=== PATIENT | female | born 1970 | race Two or more races ===

== ENCOUNTER 2021-11-10 09:36 | Outpatient (REF) | payer OTHER, SELFPAY ==
[2021-11-10 12:15] LABS: COVID-19 Test Negative (Negative)
== END 2021-11-10 09:37 | disposition home or self-care (01) ==
LOC: HO.LAB 09:36
PROVIDERS: Visit Provider Internal Medicine
DX: Z20.822 Contact with and (suspected) exposure to COVID-19 (principal)
CPT/HCPCS: 36415; 87635; C9803

== ENCOUNTER 2021-11-11 10:28 | Outpatient (REF) | payer OTHER, SELFPAY ==
[2021-11-11 12:11] LABS: Binax Internal Control QC Valid; Binax Lot number: 1911; Binax Now Covid-19 Ag Negative (Negative)
== END 2021-11-11 10:29 | disposition home or self-care (01) ==
LOC: HO.LAB 10:28
PROVIDERS: Visit Provider Internal Medicine
DX: Z20.822 Contact with and (suspected) exposure to COVID-19 (principal)
CPT/HCPCS: 36415; C9803

== ENCOUNTER 2021-11-15 09:54 | Outpatient (REF) | payer OTHER, SELFPAY ==
[2021-11-15 10:27] LABS: COVID-19 Test Positive (Negative)
[2021-11-15 10:28] LABS: IDNOW Serial# 55D5AD1C
== END 2021-11-15 09:55 | disposition home or self-care (01) ==
LOC: HO.LAB 09:54
PROVIDERS: Visit Provider Internal Medicine
DX: Z20.822 Contact with and (suspected) exposure to COVID-19 (principal)
CPT/HCPCS: 36415; 87635; C9803

== ENCOUNTER 2022-09-09 14:43 | Outpatient (REF) | payer MEDICAID, SELFPAY ==
--- NOTE | ~2022-09-09 | MM_ITS ---
EXAMINATION: MM SCREENING DIGITAL BREAST TOMOSYNTHESIS, BILATERAL CLINICAL INFORMATION: Screening. Asymptomatic. Prior outside mammography from [place] no longer available by patient history. No known family history breast cancer. The lifetime risk of breast cancer based on the Tyrer-Cuzick Model is 8%. COMPARISON: None (current study represents new baseline exam). TECHNIQUE: Digital breast tomosynthesis is performed in both the craniocaudal and mediolateral oblique views along with computer-aided detection (CAD). Synthesized 2D images are generated from the tomosynthesis. FINDINGS: There are scattered areas of fibroglandular density (ACR BI-RADS breast composition Category b). Right CC view has small asymmetric density posterior medial breast extending beyond the [id number] without MLO correlate. This may represent sternalis muscle artifact or inhomogeneous compression. In the absence of prior imaging, patient will be recalled for additional imaging. The remainder of the bilateral breasts show no significant mass or architectural abnormality or abnormal calcifications. The axilla and skin contours are unremarkable. MM/MM tomosynthesis screening BI IMPRESSION: Right: -Small asymmetric density posterior medial breast extending beyond field of view on CC projection, possibly artifact from sternalis muscle or inhomogeneous compression. Left: -No mammographic evidence of malignancy. ASSESSMENT: BI-RADS 0: Incomplete - Need Additional Imaging Evaluation RECOMMENDATION: 1. Additional views of the right breast (right cleavage, ML). 2. Targeted ultrasound if warranted after review of the additional views. 3. Radiology department staff will contact the patient for additional imaging. This patient's information was entered into a reminder system with a target due date for their next mammogram.
== END 2022-09-09 14:44 | disposition home or self-care (01) ==
LOC: HO.MAMMO 14:43
PROVIDERS: PCP Internal Medicine; Visit Provider Internal Medicine
DX: Z12.31 Encounter for screening mammogram for malignant neoplasm of breast (principal)
CPT/HCPCS: 77063; 77067

== ENCOUNTER 2022-09-15 08:16 | Outpatient (REF) | payer MEDICAID, SELFPAY ==
--- NOTE | ~2022-09-15 | MM_ITS ---
EXAMINATION: MM DIAGNOSTIC DIGITAL BREAST TOMOSYNTHESIS, RIGHT US DIAGNOSTIC ULTRASOUND BREAST, RIGHT CLINICAL INFORMATION: Recall from new baseline exam for small asymmetric density posterior medial right breast extending beyond field of view limited to CC projection. TC score 8%. COMPARISON: Mammography: 09/09/2022, new baseline). TECHNIQUE: Digital breast tomosynthesis is performed. 2D images are generated from the tomosynthesis. The following views are obtained: Right cleavage, right ML. Ultrasound right breast is targeted to the medial breast using grayscale imaging and color Doppler without and with harmonics. FINDINGS: There are scattered areas of fibroglandular density (ACR BI-RADS breast composition Category b). The cleavage view shows small fibroglandular density posterior medial breast as noted at recent screening. No architectural abnormality or associated calcification. No MLO or recent MLO correlate. Ultrasound demonstrates no cystic or solid mass or architectural abnormality. Chest wall soft tissues appear normal. Results are discussed with the patient at time of visit, using an manager transfusion. Right asymmetric density shows no three-dimensional mammographic correlate or ultrasound correlate. Management plan is for short interval follow-up right mammography in 6 months. MM/MM tomosynthesis added views R IMPRESSION: -Small probable benign asymmetric density posterior medial breast on recent new baseline. -Unremarkable targeted ultrasound. ASSESSMENT: BI-RADS 3: Probably Benign RECOMMENDATION: Diagnostic right mammography in 6 months. This patient's information was entered into a reminder system with a target due date for their next mammogram.
== END 2022-09-15 08:17 | disposition home or self-care (01) ==
LOC: HO.MAMMO 08:16
PROVIDERS: PCP Internal Medicine; Visit Provider Internal Medicine
DX: R92.2 Inconclusive mammogram (principal)
CPT/HCPCS: 76642; 77061; 77065

== ENCOUNTER 2023-03-24 12:51 | Outpatient (REF) | payer MEDICAID, SELFPAY ==
--- NOTE | ~2023-03-24 | MM_ITS ---
EXAMINATION: MM DIAGNOSTIC DIGITAL BREAST TOMOSYNTHESIS, RIGHT CLINICAL INFORMATION: Short interval six-month follow-up probable benign asymmetric density posterior medial right breast initially noted at new baseline. TC score 8%. COMPARISON: Mammography: 09/15/2022, 09/09/2022 (new baseline, BI-RADS 0), right breast ultrasound 09/15/2022. TECHNIQUE: Digital breast tomosynthesis is performed in both the craniocaudal and mediolateral oblique views along with computer-aided detection (CAD). Synthesized 2D images are generated from the tomosynthesis. FINDINGS: There are scattered areas of fibroglandular density (ACR BI-RADS breast composition Category b). Parenchymal pattern is similar to prior exams. Small asymmetric density posterior medial breast is stable. No developing density or interval architectural abnormality. There are no significant masses, abnormal calcifications, or other abnormalities. The skin contours are smooth. Results are provided to the patient at time of visit by the technologist. MM/MM tomosynthesis diagnostic RT IMPRESSION: -There are no significant changes from prior study. -Asymmetric fibroglandular density posterior medial right breast, stable. ASSESSMENT: BI-RADS 3: Probably Benign RECOMMENDATION: Diagnostic mammography at time of bilateral annual exam, due in 6 months. This patient's information was entered into a reminder system with a target due date for their next mammogram.
== END 2023-03-24 12:52 | disposition home or self-care (01) ==
LOC: HO.MAMMO 12:51
PROVIDERS: PCP Internal Medicine; Visit Provider Internal Medicine
DX: N64.89 Other specified disorders of breast (principal)
CPT/HCPCS: 77061; 77065

== ENCOUNTER 2023-09-27 11:35 | Outpatient (REF) | payer MEDICAID, SELFPAY ==
[2023-09-27 13:23] LABS: MANUAL DIFF FLAG NO
[2023-09-27 13:34] LABS: Basophils Absolute Auto 0.1 X10*3/uL (0.0-0.2); Basophils Percent Auto 0.8 % (0-2); Eosinophils Absolute Auto 0.3 X10*3/uL (0.0-0.4); Eosinophils Percent Auto 4.2 % (0-4); Hematocrit 44.7 % (37.0-47.0); Hemoglobin 14.4 g/dl (12.0-16.0); Imm Gran Abs Auto 0.03 X10*3/uL (0.00-0.03); Imm Gran Pct Auto 0.5 % (0.0-0.4); Lymphocytes Absolute Auto 2.5 X10*3/uL (1.2-4.9); Lymphocytes Percent Auto 42.3 % (20-40); Mean Corpuscular HGB Conc 32.2 g/dl (31.0-35.0); Mean Corpuscular Hemoglobin 29.3 pg (27.0-33.0); Mean Platelet Volume 10.9 fL (9.4-12.3); Monocytes Absolute Auto 0.5 X10*3/uL (0.1-1.2); Monocytes Percent Auto 7.8 % (2-11); Neutrophils Absolute Auto 2.7 x10*3/uL (2.0-8.3); Neutrophils Percent Auto 44.4 % (45-73); Platelet Count 232 X10*3/uL (160-400); Red Blood Count 4.91 X10*6/uL (4.20-5.50); Red Cell Distribution Width 12.6 % (11.0-16.0)
[2023-09-27 13:52] LABS: Alanine Aminotransferase 28 U/L (0-31); Albumin Level 4.4 g/dL (3.5-5.0); Alkaline Phosphatase 63 U/L (39-117); Anion Gap 11 (12-20); Aspartate Amino Transferase 25 U/L (5-31); Bilirubin Direct 0.2 mg/dL (0.0-0.5); Bilirubin Total 0.5 mg/dL (0.0-1.0); Blood Urea Nitrogen 15 mg/dL (9-16); Calcium 9.9 mg/dL (8.4-10.2); Carbon Dioxide 33 mmol/L (22-29); Chloride 105 mmol/L (96-108); Cholesterol 190 mg/dL (<200); Estimated Glomerular Filt Rate > 60; Glucose Random 107 mg/dL (60-115); HDL Cholesterol 43 mg/dL (>40); LDL Cholesterol Calculated 128 mg/dL (<100); Potassium 3.6 mmol/L (3.3-5.1); Sodium 145 mmol/L (135-145); Total Protein 7.3 g/dL (6.5-8.0); Triglycerides 98 mg/dL (<150)
[2023-09-27 14:27] LABS: Estimated Average Glucose 105 mg/dL; Hemoglobin A1c % 5.3 % (<6.0)
[2023-09-28 08:46] LABS: HIV AB/AG Nonreactive (Nonreactive); HIV Num 1 0.04 S/CO (0.00-0.99); ~HepC Num1 0.07 S/CO (0.00-0.79); ~Hepatitis C Antibody Nonreactive (Nonreactive)
== END 2023-09-27 11:36 | disposition home or self-care (01) ==
LOC: HO.HHCL 11:35
PROVIDERS: Visit Provider Internal Medicine
DX: Z00.00 Encounter for general adult medical examination without abnormal findings (principal)
CPT/HCPCS: 36415; 80048; 80061; 80076; 83036; 84443; 85025; 86803; 87389

== ENCOUNTER 2023-12-07 13:37 | Outpatient (REF) | payer MEDICAID, SELFPAY ==
[2023-12-09 23:28] LABS: TS Negative Control Passed; TS Panel A 0; TS Panel B 0; TS Positive Control Passed; TSpotTB Negative (Negative)
== END 2023-12-07 13:38 | disposition home or self-care (01) ==
LOC: HO.HHCL 13:37
PROVIDERS: Visit Provider Internal Medicine
DX: Z11.1 Encounter for screening for respiratory tuberculosis (principal)
CPT/HCPCS: 36415; 86481

== ENCOUNTER → 2024-03-26 15:00 | Outpatient (BNV) | payer MEDICAID, SELFPAY | PROVIDERS: PCP Internal Medicine; Visit Provider Radiology Diagnostic Radiology | DX: Z12.31 Encounter for screening mammogram for malignant neoplasm of breast (principal) | CPT/HCPCS: 77063; 77067 ==

== ENCOUNTER 2024-03-26 15:10 | Outpatient (REF) | payer MEDICAID, SELFPAY ==
--- NOTE | ~2024-03-26 | MM_ITS ---
EXAMINATION: MM DIAGNOSTIC DIGITAL BREAST TOMOSYNTHESIS, BILATERAL CLINICAL INFORMATION: 03/24/2023 exam recommended 6 month follow-up for far posterior medial right breast asymmetric density, seen on the posterior CC view only. No associated finding on right breast ultrasound 09/15/2022. The patient did return today for yearly, but not for the 6 month follow-up. The current exam is diagnostic right, left screening exam. COMPARISON: Mammography: 03/24/2023, 09/15/2022, 09/09/2022 (new baseline, BI-RADS 0), right breast ultrasound 09/15/2022. TECHNIQUE: Digital breast tomosynthesis is performed in both the craniocaudal and mediolateral oblique views along with computer-aided detection (CAD). Synthesized 2D images are generated from the tomosynthesis. In addition, full-field 3-D right mediolateral view was obtained, as well as a second full-field 3-D right CC view exaggerated medially. FINDINGS: There are scattered areas of fibroglandular density (ACR BI-RADS breast composition Category b). There are no suspicious masses, suspicious grouped calcifications, or areas of architectural distortion in either breast. The small 1 view asymmetry in the far medial posterior right breast is present, and smaller when compared with numerous prior exams dating back to 2021. This is benign. The parenchymal pattern is otherwise stable from prior exams. No skin or axillary abnormality is evident. MM/MM tomosynthesis diagnostic BI IMPRESSION: There are no findings suspicious for malignancy in either breast. Recommend the patient return to routine annual screening. ASSESSMENT: BI-RADS BI-RADS 2 - Benign Findings RECOMMENDATION: 1 year F/U Results were provided to the patient at time of visit by the technologist. This patient's information was entered into a reminder system with a target due date for their next mammogram.
== END 2024-03-26 15:11 | disposition home or self-care (01) ==
LOC: HO.MAMMO 15:10
PROVIDERS: PCP Internal Medicine; Visit Provider Internal Medicine
DX: R92.2 Inconclusive mammogram (principal)
CPT/HCPCS: 77062; 77066

== ENCOUNTER 2025-05-19 12:41 | Outpatient (REF) | payer OTHER, SELFPAY ==
--- OUTSIDE RECORDS SUMMARY | 2025-05-19 13:14 | XMS_ITS | Clinical Summary ---
Author Organization [employer] Address [address] [place] [address] Care Team Providers Care Record Maker Name Role Phone Jenn Booker MD Primary Care Provide r Allergies No known active allergies Medications Blood Pressure Monitor kitIndications:Pr imary hypertension Use as directed 3x/week 1 kit 3 Active hydroCHLOROthiazi de (HYDRODiuril) 25 MG tabletIndications :Primary hypertension Take 1 tablet (25 mg) by mouth in the morning. 90 tablet 3 4 Active amLODIPine (Norvasc) 5 MG tabletIndications :Primary hypertension Take 1 tablet (5 mg) by mouth in the morning. 30 tablet 11 4 Active butalbital-acetam inophen-caffeine 50-325-40 MG tabletIndications :Migraine without aura and without status migrainosus, not intractable TAKE 1 TABLET BY MOUTH EVERY 4 HOURS NEEDED FOR HEADACHE 9 tablet 2 4 Active fluticasone (Flonase) 50 MCG/ACT nasal sprayIndications: Chronic pansinusitis INSTILL 1 SPRAY IN EACH NOSTRIL ONCE DAILY IN THE MORNING 48 g 4 Active loratadine (Claritin) 10 MG tabletIndications :Seasonal allergies TAKE 1 TABLET BY MOUTH EVERY MORNING 90 tablet 4 Active clotrimazole-beta methasone (Lotrisone) cream APPLY TOPICALLY TO THE AFFECTED AREA(S) TWICE DAILY DIRECTED 45 g 1 4 Active Active Problems Problem Noted Date Diagnosed Date Tuberculosis screening 12/07/2023 Colon cancer screening 12/07/2023 Migraine headache without aura 09/13/2023 Assessment & Plan (12/07/2023 1:39 PM EST): C/w current interventions Assessment & Plan (09/13/2023 11:44 AM EDT): I advise to avoid migraine triggers like red wine, chocolate, cheese, strong perfumes Chronic pansinusitis 09/13/2023 Encounter for preventive care 09/13/2023 Assessment & Plan (09/13/2023 11:44 AM EDT): See HPI Seasonal allergies 09/13/2023 Class 2 severe obesity due t o excess calories with serious comorbidity in adult 09/13/2023 Assessment & Plan (09/13/2023 11:43 AM EDT): Today extensive discussion was done about life style modifications I advise healthy diet (low calorie) and cardiovascular exercise Primary hypertension 09/13/2023 Assessment & Plan (12/07/2023 1:38 PM EST): Maintenance: BMP: up to date Lipid Panel: Up to date ASCVD Risk: 3.5% low risk -Im suspecting patient has white coat syndrome, blood pressure was good before coming to appointment I advise: - Aerobic exercise to reduce BP. Initial goal of 30 min walk 3-5x/week. Increase as tolerated. - low-sodium diet (goal: <2g/day) and heart healthy diet such as DASH to reduce BP and prevent ASCVD. - Home BP monitoring 1-2 x day with goal of <140/90. - Seek immediate medical attention for chest pain, palpitations, SOB, syncope, or sudden changes in mental status. - Do not change or discontinue current prescriptions without first consulting health care provider Assessment & Plan (09/13/2023 11:36 AM EDT): Maintenance: BMP: ordered Lipid Panel: ordered ASCVD Risk: Calculate pending updated labs -I will start today hydrochlorothiazide 12.5mg RTC 2 weeks with nurse for BP check if not at goal plan is to increase the dose - Aerobic exercise to reduce BP. Initial goal of 30 min walk 3-5x/week. Increase as tolerated. - low-sodium diet (goal: <2g/day) and heart healthy diet such as DASH to reduce BP and prevent ASCVD. - Home BP monitoring 1-2 x day with goal of <140/90. - Seek immediate medical attention for chest pain, palpitations, SOB, syncope, or sudden changes in mental status. - Do not change or discontinue current prescriptions without first consulting health care provider Vitamin D deficiency 08/15/2023 Immunizations Immunization Administration Dates Next Due IPV 06/26/1986,06/29/1984,05/28/1984 Influenza Injectable Quadriv alant Preservative Free IIV4 MDCK 09/06/2022 Influenza injectable quadriv alent preservative free 09/13/2023 MMR 05/28/1984 TD (adult), 2 Lf tetanus tox oid, preservative free, adsorbed 06/26/1986,06/29/1984,05/28/1984 Tdap 09/06/2022 Zoster, Recombinant 09/06/2022,07/06/2022 Social History Tobacco Use Types Packs/Day Years Used Date Smoking Tobacco: Some Days Cigarettes Depression Answer Date Recorded Patient Health Questionnaire-9 Score 0 09/13/2023 Patient Health Questionnaire-9 Score 0 09/13/2023 Last PHQ-9: Questionnaire Data Not on file 1 11/13/2022 Housing Stability Answer Date Recorded What is your housing situation today? I have zachsabrina norris 09/05/[address] you li ve. Do you have problems with any of the following? None of the above 09/05/2023 Food Insecurity Answer Date Recorded Within the past 12 months, y ou worried that your food would run out before you got money to buy more: Never True 09/05/2023 Within the past 12 months,th e food you bought just didn't last and you didn't have enough money to get more: Never True Transportation Answer Date Recorded In the past 12 months, has l ack of transportation kept you from medical appts, meetings, work or from getting things needed for daily living? No 09/05/2023 Utilities Answer Date Recorded In the past 12 months, has t he electric, gas, oil or water company threatened to shut off services in your home? No 09/05/2023 Depression Answer Date Recorded Patient Health Questionnaire-2 Score 0 09/13/2023 Comments Unknown Sex and Gender Information Value Date Recorded Sex Assigned at Female 09/12/2022 10:40 AM EDT Legal Sex Female 10:40 AM EDT Gender Identity Female 09/12/2022 10:40 AM EDT Sexual Orientation Straight 09/12/2022 10 :40 AM EDT Last Filed Vital Signs Vital Sign Reading Time Taken Comments Blood Pressure 158/95 12/07/2023 1:12 PM EST Pulse 70 12/07/2023 1:12 PM EST Temperature 36.6 C (97.8 F) 12/07/2023 1:12 PM EST Respiratory Rate 14 12/07/2023 1:12 PM EST Oxygen Saturation 99% 12/07/2023 1:12 PM EST Inhaled Oxygen Concentration - - Weight 95.7 kg (211 lb) 12/07/2023 1:12 PM EST Height 157.5 cm (5' 2 ) 12/07/2023 1:12 PM EST Body Mass Index 38.59 12/07/2023 1:12 PM EST Plan of Treatment Health Maintenance Due Date Last Done Comments CT Colonography 1972 Colonoscopy 1972 Colorectal Cancer Screening 1972 FIT DNA/Cologuard 1972 FIT 1972 FOBT 1972 Sigmoidoscopy 1972 Disability Screening 1972 Alcohol/Substance Use Screening 1984 Hepatitis B Vaccines (1 of 3 - 19+ 3-dose series) 1991 Pneumococcal Vaccine: 50+ Years (1 of 2 - PCV) 1991 Pap Smear 1993 Cervical Cancer Screening 2002 HPV/Cotest 2002 COVID-19 Vaccine ( season) 2024 SDOH Screening 09/05/2024 09/05/2023 Depression Screening 09/13/2024 09/13/2023, 09/13/20 23 Tobacco Screening 09/13/2024 09/13/2023 Mammogram 03/26/2025 03/26/2024, 03/13, 03/24/2023, Additional history exists Influenza Vaccine (#1) 2025 09/13/2023, 2021 Lipid Panel 09/27/2028 09/27/2023, 07/06/2022 DTaP/Tdap/Td Vaccines (5 - Td or Tdap) 09/06/2032 09/06/2022, 06/26/1986, 06/29/1984, Additional history exists RSV Patients and Patients Aged 60 years or older (1 - 1-dose 75+ series) 2047 IPV Vaccines Completed 06/26/1986, 06/13, 05/28/1984 Zoster Vaccines Completed 09/06/2022, 07/06/2022 HIV Screening Completed 09/27/2023, 07/06/2022 Hepatitis C Screening Completed 09/27/2023, 022 HIB Vaccines Aged Out No longer eligi ble based on patient's age to complete this topic HPV Vaccines Aged Out No longer eligi ble based on patient's age to complete this topic Hepatitis A Vaccines Aged Out No long er eligible based on patient's age to complete this topic Meningococcal B Vaccine Aged Out No l onger eligible based on patient's age to complete this topic Meningococcal Vaccine Aged Out No alysa jamie eligible based on patient's age to complete this topic RSV under 20 months Aged Out No longe r eligible based on patient's age to complete this topic Rotavirus Vaccines Aged Out No longer eligible based on patient's age to complete this topic Procedures Procedure Name Priority Date/Time Associated Diagnosis Comments BI MAMMOGRAM DIAGNOSTIC TOMOSYNTHESIS BILATERAL Routine 03/26/2024 3:35 PM EDT HEPATITIS C AB W/REFL TO HCV RNA, QN, PCR Routine 09/27/2023 11:40 AM EST Encounter for preventive care HIV 1/2 ANTIGEN/ANTIBODY, FOURTH GENERATION W/RFL Routine 09/27/2023 11:40 AM EST Encounter for preventive care LIPID PANEL, STANDARD Routine 09/27/2023 11:40 AM EST Encounter for preventive care from Last 3 Months or Most Recently Relevant to Health Maintenance Results * BI Mammogram Diagnostic Tomosynthesis Bilateral (03/26/2024 3:35 PM EDT) Anatomical Region Laterality Modality Breast Bilateral Mammography 03/26/2024 3:35 PM EDT Narrative 03/26/2024 4:08 PM EDT [facility] [address] [place] [address] Mammography Report Signed Patient: Lupe Kamara MR#: [id number] : 1970 Acct:[id number] Age/Sex: 54 / F ADM Date: 03/26/24 Loc: HO.MAMMO Attending Dr: Jenn Ewing MD Ordering Physician: Jenn Booker MD Results: 2Benign Findings Date of Service: 03/26/24 Follow Up: 1 Year From Orig ina Mammogram Procedure(s): MM tomosynthesis diagnostic BI Accession Number(s): [id number] cc: Jenn Booker MD EXAMINATION: MM DIAGNOSTIC DIGITAL BREAST TOMOSYNTHESIS, BILATERAL CLINICAL INFORMATION: 03/24/2023 exam recommended 6 month follow-up for far posterior medial right breast asymmetric density, seen on the posterior CC view only. No associated finding on right breast ultrasound 09/15/2022. The patient did return today for yearly, but not for the 6 month follow-up. The current exam is diagnostic right, left screening exam. COMPARISON: Mammography: 03/24/2023, 09/15/2022, 09/09/2022 (new baseline, BI-RADS 0), right breast ultrasound 09/15/2022. TECHNIQUE: Digital breast tomosynthesis is performed in both the craniocaudal and mediolateral oblique views along with computer-aided detection (CAD). Synthesized 2D images are generated from the tomosynthesis. In addition, full-field 3-D right mediolateral view was obtained, as well as a second full-field 3-D right CC view exaggerated medially. FINDINGS: There are scattered areas of fibroglandular density (ACR BI-RADS breast composition Category b). There are no suspicious masses, suspicious grouped calcifications, or areas of architectural distortion in either breast. The small 1 view asymmetry in the far medial posterior right breast is present, and smaller when compared with numerous prior exams dating back to 2021. This is benign. The parenchymal pattern is otherwise stable from prior exams. No skin or axillary abnormality is evident. MM/MM tomosynthesis diagnostic BI IMPRESSION: There are no findings suspicious for malignancy in either breast. Recommend the patient return to routine annual screening. ASSESSMENT: BI-RADS BI-RADS 2 - Benign Findings RECOMMENDATION: 1 year F/U Results were provided to the patient at time of visit by the technologist. This patient's information was entered into a reminder system with a target due date for their next mammogram. Dictated By: Guanako Cordoba MD Signed By: <Electronically signed by Guanako Cordoba MD in OV> 03/26/24 1604 DD/ 1535 TD/TT: Corner Former: Procedure Note Donotuseinterpreter, Image - 03/26/2024 [facility] [address] [place] [address] Mammography Report Signed Patient: Lupe Kamara BMR#: [id number] : 1970Acct:[id number] Age/Sex: 54 / FADM Date: 03/26/24 Loc: HO.MAMMO Attending Dr: Jenn Ewing MD Ordering Physician: Jenn Booker MDResults: 2Benign Findings Date of Service: 03/26/24Follow Up: 1 Year From [facility] Mammogram Procedure(s): MM tomosynthesis diagnostic BI Accession Number(s): [id number] cc: Jenn Booker MD EXAMINATION: MM DIAGNOSTIC DIGITAL BREAST TOMOSYNTHESIS, BILATERAL CLINICAL INFORMATION: 03/24/2023 exam recommended 6 month follow-up for far posterior medial right breast asymmetric density, seen on the posterior CC view only. No associated finding on right breast ultrasound 09/15/2022. The patient did return today for yearly, but not for the 6 month follow-up. The current exam is diagnostic right, left screening exam. COMPARISON: Mammography: 03/24/2023, 09/15/2022, 09/09/2022 (new baseline, BI-RADS 0), right breast ultrasound 09/15/2022. TECHNIQUE: Digital breast tomosynthesis is performed in both the craniocaudal and mediolateral oblique views along with computer-aided detection (CAD). Synthesized 2D images are generated from the tomosynthesis. In addition, full-field 3-D right mediolateral view was obtained, as well as a second full-field 3-D right CC view exaggerated medially. FINDINGS: There are scattered areas of fibroglandular density (ACR BI-RADS breast composition Category b). There are no suspicious masses, suspicious grouped calcifications, or areas of architectural distortion in either breast. The small 1 view asymmetry in the far medial posterior right breast is present, and smaller when compared with numerous prior exams dating back to 2021. This is benign. The parenchymal pattern is otherwise stable from prior exams. No skin or axillary abnormality is evident. MM/MM tomosynthesis diagnostic BI IMPRESSION: There are no findings suspicious for malignancy in either breast. Recommend the patient return to routine annual screening. ASSESSMENT: BI-RADS BI-RADS 2 - Benign Findings RECOMMENDATION: 1 year F/U Results were provided to the patient at time of visit by the technologist. This patient's information was entered into a reminder system with a target due date for their next mammogram. Dictated By: Guanako Cordoba MD Signed By: <Electronically signed by Guanako Cordoba MD in OV> 03/26/24 1604 DD/ 1535 TD/TT: Corner Former: us Jenn Ewing MD IMG BI PROCEDURES Fin al Result * Hepatitis C Antibody with Reflex to HCV, RNA, Quantitative, Real-Time PCR (09/27/2023 11:40 AM EST) Hepatitis C Antibody Nonreactive Nonreactive [facility] Comment:Antibodies to HCV no t detected; does not exclude early acuteHCV infection. Blood Venous blood specimen / Unknown 09/27/2023 11:40 AM EST 09/27/2023 1:18 PM EST Jenn Ewing MD LAB BLOOD ORDERABLES Final Result [facility] [address] [place] [address] [phone] * HIV-1/2 Antigen and Antibodies, Fourth Generation, with Reflexes (09/27/2023 11:40 AM EST) HIV AB/AG Nonreactive Nonreactive [facility] Comment:HIV-1 p24 Ag and/or HIV-1/HIV-2 Ab not detected.A test result that is nonreactive does not exclude thepossibility of exposure to or infection with HIV-1 and/orHIV-2. Nonreactive results in this assay for individualswith prior exposure to HIV-1 and/or HIV-2 may be due toantigen and antibody levels that are below the limit ofdetection of this assay.The [place] HIV Ag/Ab Combo assay result andsupplemental assay results should be interpreted inconjunction with the patient's clinical presentation,history and other laboratory results. If the results areinconsistent with clinical evidence, additional testing issuggested to confirm the result. Blood Venous blood specimen / Unknown 09/27/2023 11:40 AM EST 09/27/2023 1:18 PM EST us Jenn Ewing MD LAB BLOOD ORDERABLES Final Result [facility] [address] [place] [phone] * (ABNORMAL) Lipid Panel, Standard (09/27/2023 11:40 AM EST) Triglycerides 98 <150 mg/dL [facility] Comment:Desirable Triglyceri de: less than 150 mg/dLBorderline High Triglyceride 150-199 mg/dLHigh Triglyceride: 200-499 mg/dLVery High Triglyceride: greater than or equal to 5OO mg/dL Cholesterol 190 <200 mg/dL [facility] Comment:Desirable Cholestero l: less than 200 mg/dLBorderline High Cholesterol: 200-239 mg/dLHigh Cholesterol: greater than 239 mg/dL LDL Cholesterol Calculated 128(H) <100 mg/dL [facility] Comment:Desirable LDL: less than 100 mg/dLNear Optimal/Above Optimal LDL: 110- 129 mg/dLBorderline High LDL: 130-159 mg/dLHigh LDL: 160-189 mg/dLVery High LDL: greater than or equal to 190 mg/dL HDL Cholesterol 43 >40 mg/dL [facility] Comment:Desirable HDL: great er than 40 mg/dL Note: This HDL assay may give artificially low results in patients with liver disease. Blood Venous blood specimen / Unknown 09/27/2023 11:40 AM EST 09/27/2023 1:18 PM EST us Jenn Ewing MD LAB BLOOD ORDERABLES Final Result Performing Organization Address City/State/[facility] Co de Phone Number [facility] [address] [place] [phone] from Last 3 Months or Most Recently Relevant to Health Maintenance Insurance [facility] C3 Care Teams Record Maker Relationship Specialty Start Date End Date Jenn Booker MD [address] [place] [address] PCP - General Family Medicine 07/06/22
== END 2025-05-19 12:42 | disposition home or self-care (01) ==
LOC: HO.MAMMO 12:41
PROVIDERS: PCP Internal Medicine; Visit Provider Internal Medicine
DX: Z12.31 Encounter for screening mammogram for malignant neoplasm of breast (principal)
CPT/HCPCS: 77063; 77067

== ENCOUNTER → 2025-05-19 13:00 | Outpatient (BNV) | payer OTHER, SELFPAY | PROVIDERS: PCP Internal Medicine; Visit Provider Internal Medicine | DX: Z12.31 Encounter for screening mammogram for malignant neoplasm of breast (principal) | CPT/HCPCS: 77063; 77067 ==

== ENCOUNTER 2025-07-07 14:17 | Outpatient (REF) | payer OTHER, SELFPAY ==
--- NOTE | ~2025-07-07 | US_ITS ---
EXAMINATIONS: 1. MM DIAGNOSTIC DIGITAL BREAST TOMOSYNTHESIS, RIGHT 2. Targeted ultrasound of the right breast CLINICAL INFORMATION: Callback from screening for right breast focal asymmetry in the upper outer quadrant at middle depth. COMPARISON: Comparison made to multiple prior, most recent May 19, 2025, and most remote September 09, 2022. TECHNIQUE: Digital breast tomosynthesis is performed in full-field ML 90 degrees along with computer-aided detection (CAD). Synthesized 2D images are generated from the tomosynthesis. Spot compression tomosynthesis images were also obtained. FINDINGS: BREAST COMPOSITION: There are scattered areas of fibroglandular density (ACR BI-RADS breast composition Category b). RIGHT BREAST: Previously suggested focal asymmetry almost completely effaces with spot compression. Local parenchyma on today's images is similar to multiple prior studies as far back as 2021. Targeted ultrasound of the right breast was performed at the location of the mammographic finding. The survey throughout the upper outer quadrant did not reveal suspicious sonographic findings. US/US breast RT limited mamm only IMPRESSION: RIGHT BREAST: Negative, no evidence of malignancy. Normal interval follow-up is recommended in 12 months. ASSESSMENT: BI-RADS 1 - Negative RECOMMENDATION: 1 year F/U Results were provided to the patient at time of visit by the technologist. This patient's information was entered into a reminder system with a target due date for their next mammogram. Electronically signed by: Marilyn Hugo MD 07/07/2025 03:17 PM EDT Workstation: [id number]
--- OUTSIDE RECORDS SUMMARY | 2025-07-07 15:49 | XMS_ITS | Encounter Summary ---
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 Role Phone Jenn Booker MD Primary Care Provide r Encounter Details Date Type Department Care Team ([facility] st Contact Info) Description 07/07/2025 Orders Only [facility] MEDICINE [address] [place], [place] [phone] Jenn Booker MD [address] [place], [place] [phone] Social History Tobacco Use Types Packs/Day Years Used Date Smoking Tobacco: Some Days Cigarettes Depression Answer Date Recorded Patient Health Questionnaire-9 Score 0 09/13/2023 Patient Health Questionnaire-9 Score 0 09/13/2023 Last PHQ-9: Questionnaire Data Not on file 1 11/13/2022 Housing Stability Answer Date Recorded What is your housing situation today? I have zach norris 09/05/[address] you [...] Orientation Straight 09/12/2022 10 :40 AM EDT documented as of this encounter Plan of Treatment Upcoming Encounters Date Type Department Care Team (Late st Contact Info) Description 08/08/2025 3:15 PM EDT Office Visit [facility] MEDICINE [address] [place] [phone] Jenn Booker MD [address] [place] [address] documented as of this encounter Procedures Procedure Name Priority Date/Time Associated Diagnosis Comments BI MAMMOGRAM DIAGNOSTIC TOMOSYNTHESIS ADDED VIEW RIGHT Routine 07/07/2025 2:30 PM EDT documented in this encounter Results * BI Mammogram Diagnostic Tomosynthesis added right (07/07/2025 2:30 PM EDT) Anatomical Region Laterality Modality Breast Left Mammography 07/07/2025 2:30 PM EDT Narrative 07/07/2025 3:21 PM EDT [facility]'s [address] [place] [address] Mammography Report Signed Patient: Lupe Kamara MR#: [id number] : 1970 Acct:[id number] Age/Sex: 55 / F ADM Date: 07/07/25 Loc: DORCAS Attending Dr: Jenn Ewing MD Ordering Physician: Jenn Booker MD Results: 1Negative Date of Service: 07/07/25 Follow Up: 1 Year From Orig inal Mammogram Procedure(s): MM tomosynthesis added views R Accession Number(s): [id number] cc: Jenn Booker MD EXAMINATIONS: 1. MM DIAGNOSTIC DIGITAL BREAST TOMOSYNTHESIS, RIGHT 2. Targeted ultrasound of the right breast CLINICAL INFORMATION: Callback from screening for right breast focal asymmetry in the upper outer quadrant at middle depth. COMPARISON: Comparison made to multiple prior, most recent May 19, 2025, and most remote September 09, 2022. TECHNIQUE: Digital breast tomosynthesis is performed in full-field ML 90 degrees along with computer-aided detection (CAD). Synthesized 2D images are generated from the tomosynthesis. Spot compression tomosynthesis images were also obtained. FINDINGS: BREAST COMPOSITION: There are scattered areas of fibroglandular density (ACR BI-RADS breast composition Category b). RIGHT BREAST: Previously suggested focal asymmetry almost completely effaces with spot compression. Local parenchyma on today's images is similar to multiple prior studies as far back as 2021. Targeted ultrasound of the right breast was performed at the location of the mammographic finding. The survey throughout the upper outer quadrant did not reveal suspicious sonographic findings. MM/MM tomosynthesis added views R IMPRESSION: RIGHT BREAST: Negative, no evidence of malignancy. Normal interval follow-up is recommended in 12 months. ASSESSMENT: BI-RADS 1 - Negative RECOMMENDATION: 1 year F/U Results were provided to the patient at time of visit by the technologist. This patient's information was entered into a reminder system with a target due date for their next mammogram. Electronically signed by: Marilyn Hugo MD 07/07/2025 03:17 PM EDT Dictated By: Marilyn Hugo MD Signed By: <Electronically signed by Marilyn Hugo MD in OV> 07/07/25 1517 DD/ 1430 TD/TT: 07/07/25 1447 Film Or Videotape Editor: Procedure Note Donotuseinterpreter, Image - 07/07/20[facility] [address] [place] [address] Mammography Report Signed Patient: Lupe Kamara BMR#: [id number] : 1970Acct:[id number] Age/Sex: 55 / FADM Date: 07/07/25 Loc: HO.MAMMO Attending Dr: Jenn Ewing MD Ordering Physician: Jenn Booker MDResults: 1Negative Date of Service: 07/07/25Follow Up: 1 Year From Orig inal Mammogram Procedure(s): MM tomosynthesis added views R Accession Number(s): [id number] cc: Jenn Booker MD EXAMINATIONS: 1. MM DIAGNOSTIC DIGITAL BREAST TOMOSYNTHESIS, RIGHT 2. Targeted ultrasound of the right breast CLINICAL INFORMATION: Callback from screening for right breast focal asymmetry in the upper outer quadrant at middle depth. COMPARISON: Comparison made to multiple prior, most recent May 19, 2025, and most remote September 09, 2022. TECHNIQUE: Digital breast tomosynthesis is performed in full-field ML 90 degrees along with computer-aided detection (CAD). Synthesized 2D images are generated from the tomosynthesis. Spot compression tomosynthesis images were also obtained. FINDINGS: BREAST COMPOSITION: There are scattered areas of fibroglandular density (ACR BI-RADS breast composition Category b). RIGHT BREAST: Previously suggested focal asymmetry almost completely effaces with spot compression. Local parenchyma on today's images is similar to multiple prior studies as far back as 2021. Targeted ultrasound of the right breast was performed at the location of the mammographic finding. The survey throughout the upper outer quadrant did not reveal suspicious sonographic findings. MM/MM tomosynthesis added views R IMPRESSION: RIGHT BREAST: Negative, no evidence of malignancy. Normal interval follow-up is recommended in 12 months. ASSESSMENT: BI-RADS 1 - Negative RECOMMENDATION: 1 year F/U Results were provided to the patient at time of visit by the technologist. This patient's information was entered into a reminder system with a target due date for their next mammogram. Electronically signed by: Marilyn Hugo MD 07/07/2025 03:17 PM EDT Dictated By: Marilyn Hugo MD Signed By: <Electronically signed by Marilyn Hugo MD in OV> 07/07/25 1517 DD/ 1430 TD/TT: 07/07/25 1447 Film Or Videotape Editor: Jenn Ewing MD IMG BI PROCEDURES Fin al Result documented in this encounter Visit Diagnoses Not on filedocumented in this encounter Additional Health Concerns Assessment Noted Time PHQ-9 Depression Total Score: 0 09/13/20 23 10:56 AM EDT documented as of this encounter Care Teams Raw Finish Mill Operator Relationship Specialty Start Date End Date Jenn Booker MD [address] [place] [phone] PCP - General Family Medicine 07/06/22 documented as of this encounter
--- OUTSIDE RECORDS SUMMARY | 2025-07-07 15:49 | XMS_ITS | Clinical Summary ---
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 Name Role Phone Jenn Booker MD Primary [...] health care provider Vitamin D deficiency 08/15/2023 Encounters Date Type Department Care Team Description 07/07/2025 Orders Only [facility] MEDICINE [address] [place] [phone] Jenn Booker MD 05/19/2025 Orders Only [facility] MEDICINE [address] [place] [address] Jenn Booker MD from Last 3 Months Immunizations Immunization Administration Dates Next Due IPV [...] 12/07/2023 1:12 PM EST Plan of Treatment Upcoming Encounters Date Type Department Care Team (Late st Contact Info) Description 08/08/2025 3:15 PM EDT Office Visit [facility] MEDICINE [address] [place] [address] Jenn Booker MD [address] [place] [address] Health Maintenance Due Date Last Done Comments [...] Cancer Screening 2002 HPV/Cotest 2002 COVID-19 Vaccine (1 - season) 2024 SDOH Screening 09/05/2024 09/05/2023 Depression Screening 09/13/2024 09/13/2023, 09/13/20 23 Tobacco Screening 09/13/2024 09/13/2023 Influenza Vaccine (#1) 2025 09/13/2023, 2021 Mammogram 05/19/2026 05/19/2025, 03/13, 03/24/2023, Additional history exists Lipid Panel 09/27/2028 09/27/2023, 07/06/2022 DTaP/Tdap/Td Vaccines [...] VIEW RIGHT Routine 07/07/2025 2:30 PM EDT BI MAMMOGRAM SCREENING TOMOSYNTHESIS BILATERAL Routine 05/19/2025 12:45 PM EDT HEPATITIS C AB W/REFL TO [...] Maintenance Results * BI Mammogram Diagnostic Tomosynthesis added right (07/07/2025 2:30 PM EDT) Anatomical Region Laterality Modality Breast Left Mammography 07/07/2025 2:30 PM EDT Narrative 07/07/2025 3:21 PM EDT [facility] [address] [place] [address] Mammography Report Signed Patient: Lupe Kamara MR#: [id number] : 1970 Acct:[id number] Age/Sex: 55 / F ADM Date: 07/07/25 Loc: DORCAS Attending Dr: Jenn Ewing MD Ordering Physician: Jenn Booker MD Results: 1Negative Date of Service: 07/07/25 Follow Up: 1 Year From Orig inal Mammogram Procedure(s): MM tomosynthesis added views R Accession Number(s): [id number] cc: Jenn Booker MD EXAMINATIONS: 1. MM [...] 07/07/25 1517 DD/ 1430 TD/TT: 07/07/25 1447 Business Teacher: Procedure Note Donotuseinterpreter, Image - 07/07/2025 [facility] [address] [place] [address] [place] [address] Mammography Report Signed Patient: Lupe Kamara BMR#: [id number] : 1970Acct:[id number] Age/Sex: 55 / FADM Date: 07/07/25 Loc: DORCAS Attending Dr: Jenn Ewing MD Ordering Physician: Jenn Booker MDResults: 1Negative Date of Service: 08/25/25Follow Up: 1 Year From Orig ina Mammogram Procedure(s): MM tomosynthesis added views R Accession Number(s): [id number] cc: Jenn Booker MD EXAMINATIONS: 1. MM [...] 07/07/25 1517 DD/ 1430 TD/TT: 07/07/25 1447 Business Teacher: us Jenn Ewing MD IMG BI PROCEDURES Fin al Result * BI Mammogram Screening Tomosynthesis Bilateral (05/19/2025 12:45 PM EDT) Anatomical Region Laterality Modality Breast Bilateral Mammography 05/19/2025 12:4 5 PM EDT Narrative 05/30/2025 9:20 PM EDT [place] [facility]'s [address] [place] [address] Mammography Report Signed Patient: Lupe Kamara MR#: [id number] : 1970 Acct:[id number] Age/Sex: 55 / F ADM Date: 05/19/25 Loc: HO.MAMMO Attending Dr: Jenn Ewing MD Ordering Physician: Jenn Booker MD Results: 0Incomplete: Needs Additional Imaging Evaluation Date of Service: 05/19/25 Follow Up: Additional Imagi ng Procedure(s): MM tomosynthesis screening BI Accession Number(s): [id number] cc: Jenn Booker MD EXAMINATION: MM SCREENING DIGITAL BREAST TOMOSYNTHESIS, BILATERAL CLINICAL INFORMATION: Screening. Asymptomatic. COMPARISON: Mammography: Comparison is made with available priors TECHNIQUE: Digital breast mammography with tomosynthesis is performed in both the craniocaudal and mediolateral oblique views along with computer-aided detection (CAD). FINDINGS: There are scattered areas of fibroglandular density (ACR BI-RADS breast composition Category b). Right: Focal asymmetry upper outer breast middle depth. No suspicious calcifications or other abnormal findings. Left: There are no significant masses, abnormal calcifications, or other abnormalities. MM/MM tomosynthesis screening BI IMPRESSION: Additional imaging is recommended ASSESSMENT: BI-RADS BI-RADS 0 - Incomplete: Needs additional Imaging. RECOMMENDATION: 1. Additional views of the right breast. 2. Targeted ultrasound if warranted after review of the additional views. 3. Radiology department staff will contact the patient for additional imaging. Additional Imaging required This examination should not preclude the clinical evaluation of a suspicious palpable abnormality. This patient's information was entered into a reminder system with a target due date for their next mammogram. Electronically signed by: Carey Jules DO 05/30/2025 09:17 PM EDT Dictated By: Carey Jules DO Signed By: <Electronically signed by Carey Jules DO in OV> 05/30/252116 DD/ 1245 TD/TT: 05/19/25 1300 Business Teacher: Procedure Note Donotuseinterpreter, Image - 05/30/2025 [facility] [address] [place] [address] Mammography Report Signed Patient: Lupe Kamara BMR#: [id number] : 1970Acct:[id number] Age/Sex: 55 / FADM Date: 05/19/25 Loc: HO.MAMMO Attending Dr: Jenn Ewing MD Ordering Physician: Jenn Booker MD Results: 0Incomplete: Needs Additional Imaging Evaluation Date of Service: 05/19/25Follow Up: Additional Imagi ng Procedure(s): MM tomosynthesis screening BI Accession Number(s): [id number] cc: Jenn Booker MD EXAMINATION: MM SCREENING DIGITAL BREAST TOMOSYNTHESIS, BILATERAL CLINICAL INFORMATION: Screening. Asymptomatic. COMPARISON: Mammography: Comparison is made with available priors TECHNIQUE: Digital breast mammography with tomosynthesis is performed in both the craniocaudal and mediolateral oblique views along with computer-aided detection (CAD). FINDINGS: There are scattered areas of fibroglandular density (ACR BI-RADS breast composition Category b). Right: Focal asymmetry upper outer breast middle depth. No suspicious calcifications or other abnormal findings. Left: There are no significant masses, abnormal calcifications, or other abnormalities. MM/MM tomosynthesis screening BI IMPRESSION: Additional imaging is recommended ASSESSMENT: BI-RADS BI-RADS 0 - Incomplete: Needs additional Imaging. RECOMMENDATION: 1. Additional views of the right breast. 2. Targeted ultrasound if warranted after review of the additional views. 3. Radiology department staff will contact the patient for additional imaging. Additional Imaging required This examination should not preclude the clinical evaluation of a suspicious palpable abnormality. This patient's information was entered into a reminder system with a target due date for their next mammogram. Electronically signed by: Carey Jules DO 05/30/2025 09:17 PM EDT Dictated By: Carey Jules DO Signed By: <Electronically signed by Carey Jules DO in OV> 05/30/25 2117 DD/ 1245 TD/TT: 05/19/25 1300 Business Teacher: Jenn Ewing MD IMG BI PROCEDURES Gee ines Result - Final * Hepatitis C Antibody with Reflex to HCV, RNA, Quantitative, Real-Time PCR (09/27/2023 11:40 AM EST) Hepatitis C Antibody Nonreactive Nonreactive [facility] Comment:Antibodies to HCV no t detected; does not exclude early acuteHCV infection. Blood Venous blood specimen / Unknown 09/27/2023 11:40 AM EST 09/27/2023 1:18 PM EST Jenn Ewing MD LAB BLOOD ORDERABLES Final Result [facility] [address] [place] [phone] * HIV-1/2 Antigen and Antibodies, Fourth Generation, with Reflexes (09/27/2023 11:40 AM EST) HIV AB/AG Nonreactive Nonreactive [facility] Comment:HIV-1 p24 Ag and/or HIV-1/HIV-2 Ab not detected.A test result that is nonreactive does not exclude thepossibility of exposure to or infection with HIV-1 and/orHIV-2. Nonreactive results in this assay for individualswith prior exposure to HIV-1 and/or HIV-2 may be due toantigen and antibody levels that are below the limit ofdetection of this assay.[employer] HIV Ag/Ab Combo assay result andsupplemental assay results should be interpreted inconjunction with the patient's clinical presentation,history and other laboratory results. If the results areinconsistent with clinical evidence, additional testing issuggested to confirm the result. Blood Venous blood specimen / Unknown 09/27/2023 11:40 AM EST 09/27/2023 1:18 PM EST us Jenn Ewing MD LAB BLOOD ORDERABLES Final Result Performing Organization Address [facility] Co de Phone Number [facility] [address] [place] [phone] * (ABNORMAL) Lipid Panel, Standard (09/27/2023 11:40 AM EST) Triglycerides 98 <150 mg/dL [facility] Comment:Desirable Triglyceri de: less than 150 mg/dLBorderline High Triglyceride 150-199 mg/dLHigh Triglyceride: 200-499 mg/dLVery High Triglyceride: greater than or equal to 5OO mg/dL Cholesterol 190 <200 mg/dL [facility] Comment:Desirable Cholestero l: less than 200 mg/dLBorderline High Cholesterol: 200-239 mg/dLHigh Cholesterol: greater than 239 mg/dL LDL Cholesterol Calculated 128(H) <100 mg/dL [facility] Comment:Desirable LDL: less than 100 mg/dLNear Optimal/Above Optimal LDL: 110- 129 mg/dLBorderline High LDL: 130-159 mg/dLHigh LDL: 160-189 mg/dLVery High LDL: greater than or equal to 190 mg/dL HDL Cholesterol 43 >40 mg/dL [facility] Comment:Desirable HDL: great er than 40 mg/dL Note: This HDL assay may give artificially low results in patients with liver disease. Blood Venous blood specimen / Unknown 09/27/2023 11:40 AM EST 09/27/2023 1:18 PM EST us Jenn Ewing MD LAB BLOOD ORDERABLES Final Result Performing Organization Address [facility]/ZIP Co de Phone Number [facility] [address] [place] [phone] from Last 3 Months or Most Recently Relevant to Health Maintenance Insurance [facility] C3 Care Teams Purchasing Internship Relationship Specialty Start Date End Date Jenn Booker MD [address] [place] [phone] PCP - General Family Medicine 07/06/22
== END 2025-07-07 14:18 | disposition home or self-care (01) ==
LOC: HO.MAMMO 14:17
PROVIDERS: PCP Internal Medicine; Visit Provider Internal Medicine
DX: N64.89 Other specified disorders of breast (principal)
CPT/HCPCS: 76642; 77061; 77065

== ENCOUNTER → 2025-07-07 14:30 | Outpatient (BNV) | payer OTHER, SELFPAY | PROVIDERS: PCP Internal Medicine; Visit Provider Radiology Body Imaging | DX: R92.8 Other abnormal and inconclusive findings on diagnostic imaging of breast (principal) | CPT/HCPCS: 76642; 77061; 77065 ==

== ENCOUNTER 2025-08-11 13:02 | Outpatient (REF) | payer OTHER, SELFPAY ==
--- NOTE | ~2025-08-11 | XR_ITS ---
EXAMINATION: XR LUMBOSACRAL SPINE CLINICAL INFORMATION: pain COMPARISON: None available. TECHNIQUE: Three views of the lumbosacral spine. FINDINGS: Calcifications in the pelvis are likely phleboliths. There are 5 nonrib-bearing lumbar segments. L2-3 demonstrates subtle retrolisthesis. L3-4 injuries mild grade 1 retrolisthesis. L4-5 demonstrates mild to moderate disc space narrowing and grade 1 retrolisthesis. No acute deformity is demonstrated. XR/XR lumbar spine 2-3V IMPRESSION: Mild multilevel degenerative changes. Electronically signed by: Jeison Gamble MD 08/11/2025 02:00 PM EDT
--- NOTE | ~2025-08-11 | XR_ITS ---
EXAMINATION: XR KNEE, RIGHT CLINICAL INFORMATION: pain and swelling COMPARISON: None available. TECHNIQUE: Four views of the right knee. FINDINGS: Joint fluid is visible in suprapatellar pouch. There is moderate narrowing of the medial compartment. There are marginal osteophytes along the medial joint line and patellofemoral joint. Intercondylar spines are peaked. There is mild lateral patellar tilt. Triangular ossification is visible medial to the medial tibial plateau. XR/XR knee RT 4V IMPRESSION: Moderate osteoarthritis and borderline joint effusion. Mild lateral patellar tilt. Electronically signed by: Jeison Gamble MD 08/11/2025 01:58 PM EDT
[2025-08-11 16:10] LABS: MANUAL DIFF FLAG NO
[2025-08-11 16:24] LABS: Hematocrit 42.8 % (37.0-47.0); Hemoglobin 14.0 g/dl (12.0-16.0); Imm Gran Abs Auto 0.02 X10*3/uL (0.00-0.03); Imm Gran Pct Auto 0.3 % (0.0-0.4); Lymphocytes Absolute Auto 2.2 X10*3/uL (1.2-4.9); Mean Corpuscular HGB Conc 32.7 g/dl (31.0-35.0); Mean Corpuscular Hemoglobin 29.4 pg (27.0-33.0); Mean Corpuscular Volume 89.7 fL (80.0-98.0); NRBC Abs Auto 0.000 X10*3/uL (0.0-0.012); NRBC Pct Auto 0.0 /100WBC (0.0-0.2); Platelet Count 240 X10*3/uL (160-400); Red Blood Count 4.77 X10*6/uL (4.20-5.50); White Blood Count 7.0 X10*3/uL (4.8-10.8)
[2025-08-11 16:44] LABS: Alanine Aminotransferase 35 U/L (0-31); Albumin Level 4.6 g/dL (3.5-5.0); Alkaline Phosphatase 64 U/L (39-117); Anion Gap 11 (12-20); Aspartate Amino Transferase 27 U/L (5-31); Blood Urea Nitrogen 12 mg/dL (9-16); Calcium 9.6 mg/dL (8.4-10.2); Carbon Dioxide 28 mmol/L (22-29); Chloride 108 mmol/L (96-108); Cholesterol 183 mg/dL (<200); Estimated Glomerular Filt Rate > 60; HDL Cholesterol 44 mg/dL (>40); Potassium 4.1 mmol/L (3.3-5.1); Sodium 143 mmol/L (135-145); Total Protein 7.0 g/dL (6.5-8.0); Triglycerides 63 mg/dL (<150)
[2025-08-12 05:47] LABS: HIV Num 1 0.04 S/CO (0.00-0.99); ~HepC Num1 0.09 S/CO (0.00-0.79); ~Hepatitis C Antibody Nonreactive (Nonreactive)
== END 2025-08-11 13:03 | disposition home or self-care (01) ==
LOC: HO.HHCL 13:02
PROVIDERS: PCP Internal Medicine; Visit Provider Internal Medicine
DX: Z11.4 Encounter for screening for human immunodeficiency virus [HIV] (principal); Z11.59 Encounter for screening for other viral diseases; I10 Essential (primary) hypertension; M54.50 Low back pain, unspecified; G89.29 Other chronic pain; M25.561 Pain in right knee; Z13.1 Encounter for screening for diabetes mellitus
CPT/HCPCS: 36415; 72100; 73564; 80053; 80061; 82306; 83036; 84443; 85025; 86803; 87389

== ENCOUNTER → 2025-08-11 13:20 | Outpatient (BNV) | payer OTHER, SELFPAY | PROVIDERS: PCP Internal Medicine; Visit Provider Radiology Diagnostic Radiology | DX: M17.11 Unilateral primary osteoarthritis, right knee (principal); M54.50 Low back pain, unspecified | CPT/HCPCS: 72100; 73564 ==